=== PATIENT | female | born 1965 | race Hispanic/Latino ===

== ENCOUNTER 2018-11-16 08:07 | Emergency (ER) | payer MEDICAID ==
[2018-11-16] MEDS ORDERED: ZOFRAN IV ONE (08:54)
[2018-11-16] MEDS ORDERED: KEPPRA 1,000 MG/NS 0.75% 100ML 1,000 MG/100 ML BAG IV ONE (08:54)
[2018-11-16] MEDS ORDERED: MORPHINE IV ONE (08:54)
[2018-11-16 08:58] LABS: Basophils # (Auto) 0.1 K/mm3 (0.0-0.1); Basophils % (Auto) 0.5 % (0.0-1.8); Eosinophils % (Auto) 0.2 % (0.0-4.3); Lymphocytes % (Auto) 12.3 % (13.4-35.0); Mean Corpuscular HGB Conc 30 % (30-34); Platelet Count 826 K/mm3 (140-440); Red Blood Count 4.78 M/mm3 (3.65-5.03)
[2018-11-16 09:01] LABS: Hematocrit 30.2 % (30.3-42.9); Mean Corpuscular Volume 63 fl (79-97); Red Cell Distribution Width 22.5 % (13.2-15.2)
[2018-11-16 09:14] LABS: Alanine Aminotransferase 9 units/L (7-56); Albumin 3.5 g/dL (3.9-5); BUN/Creatinine Ratio 12; Blood Urea Nitrogen 7 mg/dL (7-17); Calcium 9.5 mg/dL (8.4-10.2); Hemolysis Index 1
--- NOTE | 2018-11-16 09:22 | Emergency Department Report ---
HPI - General Chief Complaint: Abdominal Pain Time Seen by Provider: 11/16/18 08:35 - HPI HPI: 52-year-old female presents to the emergency department via EMS from home with a complaint of generalized abdominal pain that is worse in the upper abdomen, along with nausea, vomiting and constipation. The patient says that this been going on for the past month but worsened over the past few days. She says that she vomits every time she tries to eat something. Patient also allegedly had a seizure that lasted about 1 minute just upon arrival waiting for a bed assignment. She does have a history of seizures. She has a history of a previous brain aneurysm, hypothyroidism. She has a surgical history of appendectomy, cholecystectomy, gastric bypass surgery, . She has not taken anything for her symptoms prior to presentation. ED Past Medical Hx - Past Medical History Previous Medical History?: Yes Hx Seizures: Yes (p brain aneurysm) Additional medical history: hypothyroid - Surgical History Hx Cholecystectomy: Yes Hx Appendectomy: Yes Additional Surgical History: csection gastric bypass - Social History Smoking Status: Unknown if ever smoked - Medications Home Medications: Home Medications Medication Instructions Recorded Confirmed Last Taken Type levETIRAcetam [Keppra TAB] 500 mg PO 4XD 05/18/13 11/16/18 05/18/13 18:00 Hi story Famotidine [Pepcid] 20 mg PO BID #20 tablet 11/16/18 Unknown Rx Ondansetron [Zofran Odt] 4 mg PO Q8HR PRN #12 tab.rapdis 11/16/18 Unknown Rx carBAMazepine [TEGretol] 400 mg PO Q12HR 11/16/18 11/16/18 Unknown History diazePAM TAB [Valium] 2 mg PO 4XD 11/16/18 11/16/18 Unknown History ED Review of Systems ROS: Stated complaint: ABD PAIN Other details as noted in HPI Comment: All other systems reviewed and negative Constitutional: denies: chills, fever Eyes: denies: eye pain, vision change ENT: denies: ear pain, throat pain Respiratory: denies: cough, shortness of breath Cardiovascular: denies: chest pain, edema Gastrointestinal: abdominal pain, nausea, vomiting, constipation Genitourinary: denies: dysuria, discharge Musculoskeletal: denies: back pain, arthralgia Skin: denies: rash, lesions Neurological: other (seizure). denies: weakness, numbness Physical Exam - Physical Exam Vital Signs: Vital Signs 11/16/18 11/16/18 08:18 08:42 Temperature 98.3 F Pulse Rate 72 73 Respiratory 18 14 Rate Blood Pressure 123/89 134/81 [Left] O2 Sat by Pulse 100 100 Oximetry Physical Exam: GENERAL: The patient is well-developed well-nourished. HENT: Normocephalic. Atraumatic. Patient has moist mucous membranes. EYES: Extraocular motions are intact. Pupils equal reactive to light bilaterally. NECK: Supple. Trachea is midline. CHEST/LUNGS: Clear to auscultation. There is no respiratory distress noted. HEART/CARDIOVASCULAR: Regular. There is no tachycardia. There is no murmur. ABDOMEN: Abdomen is soft. Upper abdominal tenderness to palpation. No guarding. Patient has normal bowel sounds. There is no abdominal distention. SKIN: Skin is warm and dry. NEURO: The patient is awake, alert, and oriented. The patient is cooperative. The patient has no focal neurologic deficits. The patient has normal speech. MUSCULOSKELETAL: There is no tenderness or deformity. There is no evidence of acute injury. ED Course Vital Signs 11/16/18 11/16/18 08:18 08:42 Temperature 98.3 F Pulse Rate 72 73 Respiratory 18 14 Rate Blood Pressure 123/89 134/81 [Left] O2 Sat by Pulse 100 100 Oximetry ED Medical Decision Making - Lab Data Result diagrams: 11/16/18 08:42 11/16/18 08:42 - EKG Data -: EKG Interpreted by Me EKG shows normal: sinus rhythm, axis, intervals, QRS complexes, ST-T waves Rate: normal - EKG Data When compared to previous EKG there are: previous EKG unavailable Interpretation: normal EKG - Radiology Data Radiology results: report reviewed, image reviewed interpreted by me: Abdominal x-ray shows nonspecific nonobstructive bowel gas PROCEDURE: CT ABDOMEN PELVIS W CON TECHNIQUE: CT of the abdomen and pelvis was performed. IV contrast was administered. Axial images and coronal and sagittal reformatted images were obtained. HISTORY: Abd pain COMPARISON: None FINDINGS: There are 2 small nonspecific nodules in the right middle lobe which measure 5 mm and 7 mm. These are seen on series 2 images 7 and 25. There are postsurgical findings involving the stomach. There are associated inflammatory changes anterior to the stomach near the gastroenteric anastomosis and along the anterior aspect of the staple line where there is also some wall thickening. In this area of inflammation there is also an outpouching which could be an ulcer or diverticulum. There is no free intraperitoneal air. The patient is status post cholecystectomy. Biliary prominence may reflect postcholecystectomy biliary ectasia. The visualized liver, spleen, pancreas, adrenal glands and right kidney demonstrate no significant abnormality. There is a small nonobstructing left intrarenal calculus. There is no abdominal aortic aneurysm. There is no evidence for intestinal obstruction. The appendix is not visualized. There is no abscess identified. Bladder is unremarkable. There is no abnormal pelvic fluid collection or mass seen. IMPRESSION: Patient appears status post gastric bypass surgery. There are inflammatory changes anterior to the stomach near gastroenteric anastomosis and along anterior aspect of the staple line where there is also some wall thickening. In the area of inflammation proximal to the staple line, there is a small gas-containing outpouching which could be a gastric diverticulitis or ulcer. There is no free air at seen. Small nonobstructing left intrarenal calculus. This document is electronically signed by Christina Kyle MD., November 16 2018 12:11:07 PM ET Transcribed By: [facility] Dictated By: CHRISTINA KYLE MD Electronically Authenticated By: CHRISTINA KYLE MD Signed Date/Time: 11/16/18 1213 - Medical Decision Making Patient presents to the emergency department with acute on chronic upper abdominal pain as well as nausea and vomiting. Vital signs stable throughout her ED course. Abdominal x-ray shows nonspecific nonobstructive bowel gas. Patient's labs showed a mild leukocytosis, some mild anemia that does not require a transfusion. She had normal electrolytes, normal renal function and normal belly labs. A CT scan was done that shows some questionable gastritis or a gastric diverticulitis but otherwise no other acute process. She was given some nausea meds, pain meds and IV fluid resuscitation. There was report of an alleged seizure upon arrival the patient has been awake, alert, oriented since my examination, which was shortly after arrival. She was loaded with some Keppra. The patient was reevaluated multiple times a hours and there has been no further seizure-like activity and she is feeling improved. She was able to pass an oral challenge without any further nausea and vomiting. She was seen ambulatory in the emergency department prior to discharge and both appears and feels stable. For these reasons, the patient will be discharged home to follow up with her primary care physician and was given a referral for gastroenterology. She will return to the ER with any worsening of her symptoms or any acute distress. - Differential Diagnosis gastritis, colitis, diverticulitis, malignancy Critical Care Time: No Critical care attestation.: If time is entered above; I have spent that time in minutes in the direct care of this critically ill patient, excluding procedure time. ED Disposition Clinical Impression: Seizure disorder Abdominal pain Qualifiers: Abdominal location: upper abdomen, unspecified Qualified Code(s): R10.10 - Upper abdominal pain, unspecified Disposition: TO HOME OR SELFCARE Is pt being admited?: No Condition: Stable Instructions: Gastritis (ED), Diet for Ulcers and Gastritis (ED), Abdominal Pain (ED), Recurrent Seizures Adult (ED) Additional Instructions: Please follow-up with your primary care physician in the next few days. I am giving you a referral for a local shipfitter apprentice, Dr. Macedo, to follow up regarding your intermittent and chronic abdominal pains. Return to the emergency department with any worsening of your symptoms or any acute distress. Prescriptions: Famotidine [Pepcid] 20 mg PO BID #20 tablet Ondansetron [Zofran Odt] 4 mg PO Q8HR PRN #12 tab.rapdis PRN Reason: Nausea Referrals: MARCELLE GARNER MD [Staff Physician] - 2-3 Days ARJUN MACEDO MD [Staff Physician] - 2-3 Days Time of Disposition: 14:21
[2018-11-16 09:32] LABS: Bilirubin,Direct < 0.2 mg/dL (0-0.2)
--- NOTE | 2018-11-16 09:50 | XRay Report ---
ABDOMEN, 2 views: History: Abdominal pain. There is no evidence of free air beneath the diaphragms. The gas pattern within the abdomen is unremarkable. There is no evidence of bowel dilatation, significant air-fluid levels, or pathologic calcifications. Organ shadows are unremarkable. Cholecystectomy and appendectomy changes are suspected. IMPRESSION: Unremarkable abdomen.
[2018-11-16 11:03] LABS: Bacteria,Urine 1+ /HPF (Negative); Bilirubin,Urine NEG (Negative); Blood,Urine NEG (Negative); Color,Urine Red (Yellow); Mucus,Urine FEW /HPF; Protein,Urine <15 mg/dL mg/dL (Negative); Urobilinogen,Urine < 2.0 mg/dL (<2.0); WBC,Urine < 1.0 /HPF (0.0-6.0)
--- NOTE | 2018-11-16 12:13 | Cat Scan Report ---
PROCEDURE: CT ABDOMEN PELVIS W CON TECHNIQUE: CT of the abdomen and pelvis was performed. IV contrast was administered. Axial images and coronal and sagittal reformatted images were obtained. HISTORY: Abd pain COMPARISON: None FINDINGS: There are 2 small nonspecific nodules in the right middle lobe which measure 5 mm and 7 mm. These are seen on series 2 images 7 and 25. There are postsurgical findings involving the stomach. There are associated inflammatory changes ante rior to the stomach near the gastroenteric anastomosis and along the anterior aspect of the staple li ne where there is also some wall thickening. In this area of inflammation there is also an outpouchin g which could be an ulcer or diverticulum. There is no free intraperitoneal air. The patient is status post cholecystectomy. Biliary prominence may reflect postcholecystectomy biliary ectasia. The visualized liver, spleen, pancreas, adrenal glands and right kidney demonstrate no significant ab normality. There is a small nonobstructing left intrarenal calculus. There is no abdominal aortic aneurysm. There is no evidence for intestinal obstruction. The appendix is not visualized. There is no abscess identified. Bladder is unremarkable. There is no abnormal pelvic fluid collection or mass seen. IMPRESSION: Patient appears status post gastric bypass surgery. There are inflammatory changes anterior to the st omach near gastroenteric anastomosis and along anterior aspect of the staple line where there is also some wall thickening. In the area of inflammation proximal to the staple line, there is a small gas- containing outpouching which could be a gastric diverticulitis or ulcer. There is no free air at seen . Small nonobstructing left intrarenal calculus. This document is electronically signed by Christina Kyle MD., November 16 2018 12:11:07 PM ET
[2018-11-16 16:31] VITALS: BP 103/66
== END 2018-11-16 16:25 | disposition home or self-care (01) ==
LOC: ED 08:07
DX: G40.909 Epilepsy, unspecified, not intractable, without status epilepticus (principal); R10.10 Upper abdominal pain, unspecified; R11.2 Nausea with vomiting, unspecified; Z79.899 Other long term (current) drug therapy; E03.9 Hypothyroidism, unspecified; Z90.49 Acquired absence of other specified parts of digestive tract
CPT/HCPCS: 36415; 74019; 74177; 80048; 80076; 81001; 82550; 83690; 84439; 84443; 84484; 85025; 93005; 93010; 96365; 96375; 99285; J1953; J2270; J2405; Q9967